=== PATIENT | female | born 1970 | race American Indian/Alaskan Native ===

== ENCOUNTER 2018-01-18 08:09 | Outpatient (CLI) | payer MEDICAID ==
--- NOTE | 2018-01-18 16:32 | Mammography Report ---
BILATERAL DIGITAL SCREENING MAMMOGRAM with CAD: 01/18/18 08:09:00 CLINICAL: Routine screening. COMPARISON:None available. FINDINGS: The breasts are heterogeneously dense, which may obscure small masses and the breasts are sufficiently dense to limit the sensitivity of mammography.A few bilateral scattered benign calcifications. No mass, architectural distortion or suspicious calcifications. IMPRESSION: No mammographic evidence of malignancy. BI-RADS CATEGORY: 2 - - Benign RECOMMENDATION: Routine mammographic screening in one year. COMMENT: Patient follow-up letters are generated by our [email or web address] application.
== END 2018-01-18 08:10 | disposition home or self-care (01) ==
LOC: SPVWC 08:09
PROVIDERS: ATTEND Obstetrics & Gynecology
DX: Z12.31 Encounter for screening mammogram for malignant neoplasm of breast (principal)
CPT/HCPCS: 77067

== ENCOUNTER 2018-04-05 14:56 | Outpatient (CLI) | payer MEDICAID ==
--- NOTE | 2018-04-12 13:00 | Magnetic Resonance Report ---
BILATERAL BREAST MRI WITHOUT AND WITH CONTRAST: 04/05/18 14:56:00 CLINICAL: Mastodynia. COMPARISON:Bilateral mammogram 01/18/18. TECHNIQUE: Axial 1.0-mm T1 without, axial high resolution 2.0-mm T2 and axial 1.0-mm dynamic Vibrant high-resolution postcontrast T1 fat saturation sequences on a 1.5 Marli magnet. The examination was performed with an 8 channel dedicated Sentinelle breast coil. Post processing with CAD and subtraction was performed on an [employer] workstation. 17.0 cc of Multihance was injected without incident for the contrast portion of the exam. Consent was obtained prior to the administration of the contrast. FINDINGS: Right: Mild background parenchymal enhancement. No mass or suspicious enhancement. A few scattered benign cysts. No suspicious lymph nodes. Left: Mild background parenchymal enhancement. No mass or suspicious enhancement. A few scattered benign cysts. The largest cyst is at 6 o'clock in the posterior one third of the breast and measures 1.4 cm. No suspicious lymph nodes. IMPRESSION: Negative study with bilateral benign cysts. BI-RADS 2 -- Benign
== END 2018-04-05 14:57 | disposition home or self-care (01) ==
LOC: SPVIMAG 14:56
PROVIDERS: ATTEND Surgery
DX: N64.4 Mastodynia (principal); Z80.3 Family history of malignant neoplasm of breast
CPT/HCPCS: A9577; C8908; 77059

== ENCOUNTER 2018-11-29 15:14 | Outpatient (CLI) | payer MEDICAID, OTHER | END 2018-11-29 15:15 | disposition home or self-care (01) | LOC: LABHHL 15:14 | PROVIDERS: ATTEND Specialist | DX: N60.02 Solitary cyst of left breast (principal) | CPT/HCPCS: 88112 ==

== ENCOUNTER 2020-04-03 07:31 | Day surgery (SDC) | payer MEDICAID, OTHER ==
[~2020-04-03 07:31] MED LIST: SODIUM CHLORIDE 0.9% 1000 ML 1,000 ML IV SCH
[2020-04-03] MEDS ORDERED: SODIUM CHLORIDE 0.9% 1000 ML 1,000 ML IV SCH (08:00)
--- NOTE | 2020-04-03 08:42 | Anesthesia Consultation ---
Anesthesia Consult and Med Hx Date of service: 04/03/20 - Airway Anesthetic Teeth Evaluation: Good ROM Head & Neck: Adequate Mental/Hyoid Distance: Adequate Mallampati Class: Class II Intubation Access Assessment: Probably Good - Pulmonary Exam CTA: Yes - Cardiac Exam Cardiac Exam: RRR - Pre-Operative Health Status ASA Pre-Surgery Classification: ASA2 Proposed Anesthetic Plan: TIVA
--- NOTE | 2020-04-03 08:43 | Anesthesia Day of Surgery ---
Anesthesia Day of Surgery - Day of Surgery Patient Examined: Yes Patient H&P Reviewed: Yes Patient is NPO: Yes
[2020-04-03] MEDS ORDERED: ONDANSETRON 4 MG/2 ML INJ ONE (09:29)
[2020-04-03] MEDS ORDERED: fentaNYL 100 MCG/2 ML INJ ONE (09:30)
[2020-04-03] MEDS ORDERED: propofoL 200 MG/20 ML VIAL IV ONE ×2 (09:30)
--- NOTE | 2020-04-03 10:10 | Procedure Note ---
Date of procedure: 04/03/20 Pre-op diagnosis: GERD/Dyspepsia/Abdominal Pain/Colon Polyp Screening Post-op diagnosis: other (Mild to Moderate Distal Erosive Esophagitis/Gastritis/ No Peptic Ulcer Disease noted/ No colon Polyps noted/ R/O Microscopic Colitis/ R/O Ileitis) Procedure: EGD with Biopsy/ Colonoscopy with Biopsy Anesthesia: SUDEEP Surgeon: RAS PARSON Estimated blood loss: minimal Pathology: list Specimen disposition: to lab Condition: stable Disposition: same day (Treat with PPI,prn Bentyl and ecourage OTC Probiotic. Avoid aspirin and NSAID and follow up in 1 to 2 weeks ([phone]).)
--- NOTE | 2020-04-03 10:22 | Operative Report ---
PROCEDURE: Esophagogastroduodenoscopy with biopsy. INDICATIONS: A 49-year-old -[place] female who has been having dyspeptic symptoms and GERD symptoms. EGD was done to assess for any significant upper GI pathology. The procedure was done after getting informed consent with MAC anesthesia. Instrument was passed through the hypopharynx into the esophagus, which showed mild to moderate distal erosive esophagitis. Photo documentation was obtained from the distal esophagus. The stomach showed antral gastritis. Biopsy was done from the gastric antrum, gastric body and angular incisura for H. pylori and atrophic gastritis. The Pylorus was patent. Duodenum in the first and second portion appeared normal. There was minimal bleeding associated with the procedure. No complications associated with the procedure. ASSESSMENT: Gastroesophageal reflux disease symptoms, dyspepsia, mild to moderate erosive esophagitis, gastritis. PLAN: To have the patient avoid aspirin and aspirin-related products for the next few days. Treat the patient with PPI. Colonoscopy will be done as part of colon polyp screening and also for assessment of abdominal pain. The patient will be asked to follow up in the office in 1-2 weeks' time. The patient will be treated with PPI. Procedure was done in the GI lab with assistance of the GI lab team, which included JEAN-PAUL Malin, mag Mcclain and with assistance of anesthesia. JOB# [id number] MONAE/BESSY
--- NOTE | 2020-04-03 10:24 | Operative Report ---
PROCEDURE: Colonoscopy with biopsy. INDICATIONS: A 49-year-old -Irish female who had an EGD done prior to the colonoscopy. EGD showed presence of a [id number] distal erosive esophagitis, gastritis, but no peptic ulcer disease was noted. DESCRIPTION OF PROCEDURE: Colonoscopy was done after getting informed consent with MAC anesthesia. Initial rectal exam was unremarkable. Instrument was passed through the rectum onto the cecum, which was identified by the ileocecal valve and the appendiceal orifice. The terminal ileum was intubated showed normal mucosa. Since the patient complained also of some associated abdominal pain, biopsy was done to rule out for possible ileitis. Cecum, ascending colon, transverse colon, descending colon, and sigmoid likewise showed normal mucosa. Random biopsies were done to rule out for possible microscopic colitis and the rectum showed some minor internal hemorrhoid on the retroverted view. ASSESSMENT: Abdominal pain, colon polyp screening, rule out microscopic colitis, rule out ileitis, minor internal hemorrhoid. PLAN: To treat the patient with PPI because of the EGD findings of esophagitis, gastritis. Also to place the patient on a p.r.n. dose of Bentyl for abdominal pain. I encouraged the patient to take probiotics. The patient to avoid aspirin and aspirin-related products for the next 4 days and follow up in the office in 1-2 weeks' time. The procedure was done in the GI lab with assistance of the GI lab team, which included mag Winter and with assistance of anesthesia. JOB# [id number] MONAE/BESSY RITTER
[2020-04-03 10:34] VITALS: BP 102/68
--- NOTE | 2020-04-03 10:40 | Post Anesthesia Evaluation ---
- Post Anesthesia Evaluation Patient Participated: Yes Airway Patent: Yes Stable Respiratory Function: Yes Nausea/Vomiting: No Temp > 96.8F: Yes Pain Manageable: Yes Adequeate Hydration: Yes Anesthesia Complications: No
== END 2020-04-03 10:39 | disposition home or self-care (01) ==
LOC: GIO 07:31
DX: R10.9 Unspecified abdominal pain (principal); K21.0 Gastro-esophageal reflux disease with esophagitis; K29.50 Unspecified chronic gastritis without bleeding; K63.89 Other specified diseases of intestine; K64.8 Other hemorrhoids; R10.13 Epigastric pain; K27.9 Peptic ulcer, site unspecified, unspecified as acute or chronic, without hemorrhage or perforation
CPT/HCPCS: 43239; 45380; 88305; 88342; J2405; J2704; J3010; J7030

== ENCOUNTER 2020-04-23 13:49 | Outpatient (CLI) | payer MEDICAID | END 2020-04-23 13:50 | disposition home or self-care (01) | LOC: LAB 13:49 | PROVIDERS: ATTEND Specialist | DX: D35.2 Benign neoplasm of pituitary gland (principal) | CPT/HCPCS: 36415; 84146 ==

== ENCOUNTER 2020-09-23 08:35 | Outpatient (CLI) | payer MEDICAID ==
--- NOTE | 2020-09-23 11:03 | Magnetic Resonance Report ---
Bilateral breast MR without and with contrast. History: Diffuse bilateral mastopathy, family history of breast cancer, screening breast MRI. Comparison: 03/04/2020, 04/05/2018. Technique: Multiplanar multisequence MR images of the breast were obtained before and after the intra venous administration of intravenous contrast. Post processing analysis and review was performed on a separate computer workstation. Findings: Breast composition is heterogenously dense. There is marked background parenchymal enhancement withi n both breasts which decreases the sensitivity of MRI.. RIGHT BREAST: There is a circumscribed oval 9 x 7 x 7 mm homogeneously enhancing mass in the right br east at the 9:00 position at anterior depth. This is best seen on axial postcontrast image 600/690. T his demonstrates slightly T2 hyperintense signal and this may represent a fibroadenoma. It is not def initely identified on prior MRI. Additionally, there is a suspected enlarged intramammary lymph node within the right upper outer breast at posterior depth. This is best seen on axial postcontrast image 618 at 690. Numerous scattered cysts are noted throughout the right breast. LEFT BREAST: No discrete enhancing mass, dominant focus, or other abnormal enhancement is identified within the left breast, given the limitations of marked background parenchymal enhancement and scatte red enhancing foci. There are numerous cysts scattered throughout the left breast. No abnormal axillary or internal mammary lymph nodes are identified. Impression: Circumscribed oval 9 mm mass, possibly fibroadenoma, is noted within the right breast at the 9:00 pos ition (2 to 3 cm from the nipple). A targeted ultrasound is recommended for further evaluation with p ossible subsequent ultrasound guided biopsy. If no sonographic correlate is identified, an MRI guided biopsy recommended. Suspected enlarged intramammary lymph node within the right breast at 10:00 to 11:00 position (8 cm f rom the nipple). A targeted ultrasound with possible subsequent ultrasound-guided biopsy is recommend ed. BIRADS 0: Incomplete--Needs Additional Imaging Evaluation. A normal MRI does not exclude the presence of some forms of breast malignancy as literature reports s uggest that some forms of ductal carcinoma in situ or lobular carcinoma, particularly, may not be det ected on MRI. The sensitivity and specificity of MRI for cancers under 5 mm may be reduced. MRI does not replace the recommendation for annual conventional mammographic evaluation and should be used as an adjunct to mammography and physical examination as necessary. Signer Name: Attila Alexander MD Signed: 09/23/2020 10:58 AM Workstation Name: [id number]
== END 2020-09-23 08:36 | disposition home or self-care (01) ==
LOC: SPVIMAG 08:35
PROVIDERS: ATTEND Surgery
DX: N63.11 Unspecified lump in the right breast, upper outer quadrant (principal); N60.11 Diffuse cystic mastopathy of right breast; N60.12 Diffuse cystic mastopathy of left breast; Z80.3 Family history of malignant neoplasm of breast
CPT/HCPCS: A9577; C8908; 77049

== ENCOUNTER 2020-10-06 12:40 | Outpatient (CLI) | payer MEDICAID ==
--- NOTE | 2020-10-06 14:45 | Ultrasound Report ---
TARGETED ULTRASOUND BREAST RIGHT LIMITED, 10/06/2020 CLINICAL INFORMATION / INDICATION: Family history of breast cancer. Abnormal breast MR TECHNIQUE: Targeted ultrasound evaluation was performed of the area of interest. COMPARISON: MR breast 09/23/2020 and 04/05/2018, bilateral mammogram 11/03/2020 FINDINGS: Note that the initial 29 images were performed by a less experienced technologists with images 30 thr ough 56 follow-up second look by a more experienced technologist. Scattered benign small simple cysts are seen in the lateral aspect of the right breast. A few small c ysts appear mildly complicated. In the 10:00 position, 5 cm from the nipple, an ovoid probable compli cated cyst is seen measuring 6 mm with mild diffuse internal echoes. Benign-appearing lymph nodes are seen in the right axilla. No obvious correlate is seen to the MR findings. IMPRESSION: 1. No obvious correlate is seen to the findings on MR. On MR the patient shows prominent bilateral pr oliferative changes which are more accentuated on today's study compared with 2018. The areas in ques tion anteriorly and posteriorly in the lateral central right breast are more prominent focally than o n prior study though there was significant enhancement in these areas previously. Kinetics are benign and ascending at both sites. No clear T1 or T2-weighted correlates are seen. I believe these areas a re of low concern despite mild change based on the similarity in appearance of some other areas of cruz th breasts and the overall prominent bilateral proliferative pattern. If 6 months MR follow-up can be obtained this would be suggested. 2. Sonographic findings today are benign and probably benign as above. Recommend 6 month ultrasound f ollow-up of the small benign-appearing nodule versus complicated cyst at 10:00. Follow up recommendation: See above BI-RADS Category 3: Probably Benign. Followup in 6 months. A normal or "negative" report should not preclude biopsy or follow-up of a clinically suspicious find ing. Signer Name: Jayson Marroquin MD Signed: 10/06/2020 2:41 PM Workstation Name: [id number]
== END 2020-10-06 12:41 | disposition home or self-care (01) ==
LOC: SPVWC 12:40
PROVIDERS: ATTEND Surgery
DX: N60.01 Solitary cyst of right breast (principal); R92.8 Other abnormal and inconclusive findings on diagnostic imaging of breast

== ENCOUNTER 2020-11-27 12:21 | Emergency (ER) | payer MEDICAID ==
--- NOTE | 2020-11-27 12:59 | Event Note ---
ED Screening Note Date of service: 11/27/20 Time: 12:56 ED Screening Note: 49-year-old -[place] female with a past medical history of GERD, IBS. Patient states she saw her certified coatings inspector on Monday he prescribed her medication has not helped. Spoke to certified coatings inspector she states that he advised her to come to the emergency room and have CT scan and blood work done. Patient denies any nausea no vomiting no diarrhea. No fevers no chills. This initial assessment/diagnostic orders/clinical plan/treatment(s) is/are subject to change based on patients health status, clinical progression and re- assessment by fellow clinical providers in the ED. Further treatment and workup at subsequent clinical providers discretion. Patient/guardian urged not to elope from the ED as their condition may be serious if not clinically assessed and managed. Initial orders include:
[2020-11-27 13:57] LABS: Bacteria,Urine 1+ /HPF (Negative); Bilirubin,Urine NEG (Negative); Blood,Urine NEG (Negative); Color,Urine Yellow (Yellow); Mucus,Urine FEW /HPF; Protein,Urine <15 mg/dL mg/dL (Negative); Urobilinogen,Urine < 2.0 mg/dL (<2.0); WBC,Urine < 1.0 /HPF (0.0-6.0)
[2020-11-27 14:14] LABS: Basophils % (Auto) 0.8 % (0.0-1.8); Eosinophils % (Auto) 0.9 % (0.0-4.3); Hematocrit 35.8 % (30.3-42.9); Hemoglobin 11.7 gm/dl (10.1-14.3); Lymphocytes # (Auto) 1.2 K/mm3 (1.2-5.4); Lymphocytes % (Auto) 32.5 % (13.4-35.0); Mean Corpuscular HGB Conc 33 % (30-34); Mean Corpuscular Volume 88 fl (79-97); Monocytes # (Auto) 0.3 K/mm3 (0.0-0.8); Monocytes % (Auto) 6.7 % (0.0-7.3); Platelet Count 188 K/mm3 (140-440); Red Blood Count 4.08 M/mm3 (3.65-5.03)
[2020-11-27 14:35] LABS: Alanine Aminotransferase 9 units/L (7-56); Albumin 4.1 g/dL (3.9-5); BUN/Creatinine Ratio 9; Blood Urea Nitrogen 7 mg/dL (7-17); Calcium 8.9 mg/dL (8.4-10.2); Hemolysis Index 13
--- NOTE | 2020-11-27 16:12 | Cat Scan Report ---
CT ABDOMEN AND PELVIS WITH CONTRAST HISTORY: Left-sided abdominal pain COMPARISON: None TECHNIQUE: Routine abdominal and pelvic CT exam performed following intravenous contrast administrat ion.. All CT scans at this location are performed using CT dose reduction for ALARA by means of autom ated exposure control. FINDINGS: CT ABDOMEN: Lung Bases: No significant abnormality. Liver: No significant abnormality. Biliary: No significant abnormality. Spleen: No significant abnormality. Unenlarged. Pancreas: No significant abnormality. Adrenals: No significant abnormality. Kidneys: No significant abnormality. Lymphatics: No lymphadenopathy. Vasculature: No significant abnormality. Bowel/Peritoneum: No significant abnormality. No free air. No free fluid. Normal appendix. CT PELVIC: : No acute findings in the bladder or uterus. The uterus appears mildly enlarged and could possibly contain some fibroids. Lymphatics: No lymphadenopathy. Osseous Structures: No aggressive appearing osseous lesions. Additional Findings: None IMPRESSION: 1. No acute findings or findings to explain left-sided abdominal pain. Signer Name: Ti Giron MD Signed: 11/27/2020 4:08 PM Workstation Name: [id number]
[2020-11-27] MEDS ORDERED: LORazepam 2 MG/ML VIAL ONE (16:56)
[2020-11-27] MEDS ORDERED: HALOPERIDOL LACTATE 5 MG/1 ML INJ ONE (16:56)
--- NOTE | 2020-11-27 17:25 | Emergency Department Report ---
ED Abdominal Pain HPI - General Chief Complaint: Abdominal Pain Stated Complaint: LEFT SIDED PAIN PUI?: No Source: patient Mode of arrival: Ambulatory Limitations: No Limitations - History of Present Illness Initial Comments: 49-year-old -[place] female with a past medical history of GERD, IBS. Patient states she saw her making machine catcher on Monday he prescribed her medication has not helped. Spoke to making machine catcher she states that he a dvised her to come to the emergency room and have CT scan and blood work done. Patient denies any nausea no vomiting no diarrhea. No fevers no chills. Onset/Timin -: days(s) Location: [facility] Severity scale (0 -10): 7 Quality: stabbing Consistency: intermittent Worsens With: nothing Associated Symptoms: denies other symptoms. denies: nausea, vomiting - Related Data Home Medications Medication Instructions Recorded Confirmed Last Taken [facility] Thyroid 90 mg PO DAILY 04/03/20 04/03/20 04/02/20 09:00 Previous Rx's Medication Instructions Recorded Last Taken Type Dicyclomine [Bentyl] 10 mg PO QID 30 Days #40 capsule 04/03/20 Unknown Rx Pantoprazole [Protonix] 40 mg PO QDAY 30 Days #30 tablet 04/03/20 Unknown Rx Allergies Allergy/AdvReac Type Severity Reaction Status Date / Time fluconazole [From Diflucan] AdvReac Hives Verified 11/27/20 12:35 ED Review of Systems ROS: Stated complaint: LEFT SIDED PAIN Other details as noted in HPI Comment: All other systems reviewed and negative ED Past Medical Hx - Past Medical History Hx GERD: Yes Hx Headaches / Migraines: Yes Additional medical history: THYROID - Surgical History Additional Surgical History: neck sx, 05/18/2020 - Social History Smoking Status: Never Smoker Substance Use Type: None - Medications Home Medications: Home Medications Medication Instructions Recorded Confirmed Last Taken Type [facility] Thyroid 90 mg PO DAILY 04/03/20 04/03/20 04/02/20 09:00 History Dicyclomine [Bentyl] 10 mg PO QID 30 Days #40 capsule 04/03/20 Unknown Rx Pantoprazole [Protonix] 40 mg PO QDAY 30 Days #30 tablet 04/03/20 Unknown Rx ED Physical Exam - General Limitations: No Limitations General appearance: alert, in no apparent distress - Head Head exam: Present: atraumatic, normocephalic - Eye Eye exam: Present: normal appearance - ENT ENT exam: Present: mucous membranes moist - Neck Neck exam: Present: normal inspection - Respiratory Respiratory exam: Present: normal lung sounds bilaterally. Absent: respiratory distress - Cardiovascular Cardiovascular Exam: Present: regular rate, normal rhythm. Absent: systolic murmur, diastolic murmur, rubs, gallop - GI/Abdominal GI/Abdominal exam: Present: soft. Absent: distended, tenderness - Back Exam Back exam: Present: normal inspection - Neurological Exam Neurological exam: Present: alert, oriented X3 - Psychiatric Psychiatric exam: Present: normal affect, normal mood - Skin Skin exam: Present: warm, dry, intact, normal color. Absent: rash ED Course Vital Signs 11/27/20 12:35 Temperature 98.5 F Pulse Rate 94 H Respiratory 18 Rate Blood Pressure 129/79 O2 Sat by Pulse 100 Oximetry ED Medical Decision Making - Lab Data Result diagrams: 11/27/20 13:37 11/27/20 13:37 - Radiology Data Radiology results: report reviewed Patient: LORNA MERCADO MR#: [id number] 8 : 1970 Acct:[id number] Age/Sex: 49 / F ADM Date: 11/27/20 Loc: ED Attending Dr: Ordering Physician: MARCELLO CASILLAS Date of Service: 11/27/20 Procedure(s): CT abdomen pelvis w con Accession Number(s): [id number] cc: MARCELLO CASILLAS CT ABDOMEN AND PELVIS WITH CONTRAST HISTORY: Left-sided abdominal pain COMPARISON: None TECHNIQUE: Routine abdominal and pelvic CT exam performed following intravenous contrast administration.. All CT scans at this location are performed using CT dose reduction for ALARA by means of automated exposure control. FINDINGS: CT ABDOMEN: Lung Bases: No significant abnormality. Liver: No significant abnormality. Biliary: No significant abnormality. Spleen: No significant abnormality. Unenlarged. Pancreas: No significant abnormality. Adrenals: No significant abnormality. Kidneys: No significant abnormality. Lymphatics: No lymphadenopathy. Vasculature: No significant abnormality. Bowel/Peritoneum: No significant abnormality. No free air. No free fluid. Normal appendix. CT PELVIC: : No acute findings in the bladder or uterus. The uterus appears mildly enlarged and could possibly contain some fibroids. Lymphatics: No lymphadenopathy. Osseous Structures: No aggressive appearing osseous lesions. Additional Findings: None IMPRESSION: 1. No acute findings or findings to explain left-sided abdominal pain. Signer Name: Ti Giron MD Signed: 11/27/2020 4:08 PM Workstation Name: [id number] Transcribed By: LALITA Dictated By: Ti Giron MD Electronically Authenticated By: Ti Giron MD Signed Date/Time: 11/27/201607 DD/ 05 TD/TT: - Medical Decision Making 49-year-old -[place] female with a past medical history of GERD, IBS. Patient states she saw her making machine catcher on Monday he prescribed her medication has not helped. Spoke to making machine catcher she states that he advised her to come to the emergency room and have CT scan and blood work done. Patient denies any nausea no vomiting no diarrhea. No fevers no chills. All labs are within normal limits. CT scan is within normal limits. Recommended she follow-up with your making machine catcher. You can take Tylenol or ibuprofen or Tylenol for pain. Critical care attestation.: If time is entered above; I have spent that time in minutes in the direct care of this critically ill patient, excluding procedure time. ED Disposition Clinical Impression: Left upper quadrant abdominal pain Disposition: DC-01 TO HOME OR SELFCARE Is pt being admited?: No Does the pt Need Aspirin: No Condition: Stable Instructions: Abdominal Pain (ED), Abdominal Pain, Adult, [id number] Additional Instructions: Labs are are stable. CT scan is within normal limits. Recommend for you to follow-up with your making machine catcher. Referrals: PRIMARY CAREMD [Primary Care Provider] - 3-5 Days Forms: Work/School Release Form(ED)
[2020-11-27 17:26] VITALS: BP 143/81
== END 2020-11-27 17:26 | disposition home or self-care (01) ==
LOC: ED 12:21
DX: R10.12 Left upper quadrant pain (principal); K21.9 Gastro-esophageal reflux disease without esophagitis; G43.909 Migraine, unspecified, not intractable, without status migrainosus; Z79.899 Other long term (current) drug therapy; Z88.8 Allergy status to other drugs, medicaments and biological substances
CPT/HCPCS: 36415; 74177; 80053; 81001; 83690; 85025; 99284; Q9967; J1630; J2060

== ENCOUNTER 2020-12-04 10:04 | Day surgery (SDC) | payer MEDICAID ==
[2020-12-04] MEDS ORDERED: SODIUM CHLORIDE 0.9% 1000 ML 1,000 ML ONE (10:57)
[2020-12-04] MEDS ORDERED: SODIUM CHLORIDE 0.9% 1000 ML 1,000 ML IV SCH (11:15)
--- NOTE | 2020-12-04 11:29 | Anesthesia Consultation ---
Anesthesia Consult and Med Hx Date of service: 12/04/20 - Airway Anesthetic Teeth Evaluation: Good ROM Head & Neck: Adequate Mental/Hyoid Distance: Adequate Mallampati Class: Class II Intubation Access Assessment: Probably Good - Pulmonary Exam CTA: Yes - Cardiac Exam Cardiac Exam: RRR - Pre-Operative Health Status ASA Pre-Surgery Classification: ASA2 Proposed Anesthetic Plan: MAC - Pulmonary Hx Respiratory Symptoms: No - Cardiovascular System Hx Hypertension: No - Central Nervous System CVA: No - Endocrine Hx Renal Disease: No Hx Liver Disease: No Hx Insulin Dependent Diabetes: No Hx Non-Insulin Dependent Diabetes: No Hx Hypothyroidism: Yes - Other Systems Hx Obesity: Yes (BMI 36)
--- NOTE | 2020-12-04 11:29 | Anesthesia Day of Surgery ---
Anesthesia Day of Surgery - Day of Surgery Patient Examined: Yes Patient H&P Reviewed: Yes Patient is NPO: Yes
[2020-12-04] MEDS ORDERED: propofoL 200 MG/20 ML VIAL IV ONE (11:32)
[2020-12-04] MEDS ORDERED: MIDAZOLAM 2 MG/2 ML INJ ONE ×3 (11:32→11:39)
[2020-12-04] MEDS ORDERED: fentaNYL 100 MCG/2 ML INJ ONE (11:32)
[2020-12-04] MEDS ORDERED: LIDOCAINE MPF (2%) 20 MG/1 ML VIAL 5 ML ONE (11:32)
[2020-12-04] MEDS ORDERED: SODIUM CHLORIDE 0.9% 1000 ML IV SOLN IV ONE (11:36)
--- NOTE | 2020-12-04 12:07 | Procedure Note ---
Date of procedure: 12/04/20 Pre-op diagnosis: Abdominal Pain Post-op diagnosis: other (R/o Microscopic Colitis/ R/O Ileitis/ minor,Internal Hemorrhoid) Procedure: Colonoscopy with Biopsy Anesthesia: MAC Surgeon: RAS PARSON Estimated blood loss: minimal Pathology: list Specimen disposition: to lab Condition: stable Disposition: same day (Treat with prn Bentyl and OTC Probiotic of Choice. Avoid aspirin and NSAID for 5 days; otherwise resume home medication and follow up in 1 to 2 weeks ([phone]).)
--- NOTE | 2020-12-04 12:14 | Operative Report ---
PROCEDURE: Colonoscopy with biopsy. INDICATIONS: This is a 49-year-old female in otherwise good health, who has been complaining of severe abdominal pain, colonoscopy was done to assess for the abdominal pain and to see if there was any associated colitis. DESCRIPTION OF PROCEDURE: The procedure was done after getting informed consent with MAC anesthesia. Initial rectal exam was unremarkable. Instrument was passed through the rectum onto the cecum, which was identified with ileocecal valve and the appendiceal orifice. Visualization was fair to good, which was fair in the cecum, which was washed with copious amounts of water. The terminal ileum was intubated, showed normal mucosa. Biopsy was done to rule out for possible ileitis. Cecum, ascending colon, transverse colon, descending colon, and sigmoid likewise showed normal mucosa. There was no evidence of any polyps, colitis or endoscopic evidence of colitis or diverticular disease. Random biopsies were done to rule out for possible microscopic colitis and the rectum showed some minor internal hemorrhoid on the retroverted view. There was minimal bleeding associated with the procedure. No complications associated with the procedure. ASSESSMENT: Abdominal pain, rule out microscopic colitis, rule out ileitis, minor internal hemorrhoid. No colon polyps or diverticular disease noted. PLAN: To treat the patient with probiotics and also with Bentyl p.r.n. The patient will be asked to avoid aspirin and aspirin-related products for the next few days and follow up in the office in 1-2 weeks' time. The procedure was done in the GI lab with assistance of the GI lab team, which included the GI nurse including the computer service technician and with assistance of anesthesia. JOB# [id number] MONAE/BESSY
[2020-12-04 13:07] VITALS: BP 112/74
== END 2020-12-04 13:15 | disposition home or self-care (01) ==
LOC: GIO 10:04
DX: R10.9 Unspecified abdominal pain (principal); K64.8 Other hemorrhoids; K63.89 Other specified diseases of intestine; E66.9 Obesity, unspecified; K21.9 Gastro-esophageal reflux disease without esophagitis; E03.9 Hypothyroidism, unspecified; Z98.890 Other specified postprocedural states; Z79.899 Other long term (current) drug therapy; Z88.8 Allergy status to other drugs, medicaments and biological substances; Z68.36 Body mass index [BMI] 36.0-36.9, adult
CPT/HCPCS: 45380; 88305; J2250; J2704; J3010; J7030

== ENCOUNTER 2021-03-08 09:53 | Outpatient (CLI) | payer MEDICAID ==
--- NOTE | 2021-03-08 15:58 | Mammography Report ---
DIGITAL SCREENING MAMMOGRAM WITH CAD, 03/08/2021 CLINICAL INFORMATION / INDICATION: Routine screening TECHNIQUE: Digital bilateral 2D mammography was obtained in the craniocaudal and mediolateral obliqu e projections. This examination was interpreted with the benefit of Computer-Aided Detection analysis . COMPARISON: 03/04/2020 FINDINGS: Breast Density: The breasts are extremely dense, which lowers the sensitivity of mammography. No dominant mass, suspicious calcifications, or architectural distortion in either breast. Right surgical changes are again noted. IMPRESSION: No mammographic evidence of malignancy. Follow up recommendation: Routine yearly BI-RADS Category 2: Benign. A "normal" or negative report should not discourage follow up or biopsy of a clinically significant f inding. A written summary of these findings will be mailed to the patient. The patient will be entered into a mammography reporting system which will generate a reminder letter for the patient's next appointmen t at the appropriate interval. The [employer] recommends yearly mammograms starting at age 40 and continuing as l erik as a woman is in good health. Breast MRI is recommended for women with an approximate 20-25% or greater lifetime risk of breast cancer, including women with a strong family history of breast or ova velia cancer or who have been treated for Hodgkin's disease. Signer Name: Jayson Marroquin MD Signed: 03/08/2021 3:53 PM Workstation Name: [id number]
== END 2021-03-08 09:54 | disposition home or self-care (01) ==
LOC: SPVWC 09:53
PROVIDERS: ATTEND Surgery
DX: Z12.31 Encounter for screening mammogram for malignant neoplasm of breast (principal)
CPT/HCPCS: 77067

== ENCOUNTER 2021-03-10 08:27 | Outpatient (CLI) | payer MEDICAID ==
--- NOTE | 2021-03-10 13:23 | Ultrasound Report ---
ULTRASOUND BREAST BILATERAL COMPLETE, 03/10/2021 CLINICAL INFORMATION / INDICATION: Short-term follow-up for right breast mass. Additionally patient h as family history breast carcinoma as well as dense breast tissue.. TECHNIQUE: Complete sonographic evaluation of all 4 quadrants and retroareolar region was performed. COMPARISON: Prior right breast ultrasound 10/06/2020, recent bilateral mammogram 03/08/2021 FINDINGS: Right breast: Scattered small cysts are seen throughout the right breast. No solid mass or focal area of shadowing is identified. The hypoechoic mass seen on the prior right breast ultrasound is not rep roduced and more than likely represented a complicated cyst that has since resolved. Left breast: Scattered small cysts are seen throughout the left breast. There is a hypoechoic mass wi th central vascularity in the left breast at 5:00, 5 cm from nipple measuring 13 x 5 mm. The appearan ce is most suggestive of either fibroadenoma or lymph node. IMPRESSION: 1. Hypoechoic benign-appearing oval mass left breast at 5:00, probably representing benign fibroadeno ma. Recommend 6 month follow-up ultrasound exam. 2. Scattered small cysts and fibrocystic change noted within the right breast. Previously noted hypoe choic small mass in the right breast on prior ultrasound at 10:00 is not reproduced. Follow up recommendation: Short term interval follow up BI-RADS Category 3: Probably Benign. Followup in 6 months. A normal or "negative" report should not preclude biopsy or follow-up of a clinically suspicious find ing. blandon bilateral Sicious finding. Signer Name: Chiara Lucas MD Signed: 03/10/2021 12:15 PM Workstation Name: [id number]
== END 2021-03-10 08:28 | disposition home or self-care (01) ==
LOC: SPVWC 08:27
PROVIDERS: ATTEND Surgery
DX: N63.23 Unspecified lump in the left breast, lower outer quadrant (principal); N60.01 Solitary cyst of right breast

== ENCOUNTER 2021-03-16 10:19 | Outpatient (CLI) | payer MEDICAID ==
--- NOTE | 2021-03-16 12:10 | Magnetic Resonance Report ---
Bilateral breast MRI with and without contrast. History: FAMILY HX OF BREAST CA Z80.3/ SOLITARY CYST RIGHT N60.01/ DIFFUSE Procedure: Axial T1 and T2-weighted fat-sat images were obtained precontrast. 19 cc Clariscan was in jected intravenously and serial axial T1-weighted images with fat saturation were obtained postcontra st. 3-D MIP projections, Kinetic analysis and subtraction imaging was utilized to evaluate. A retsCloud ed 8 channel breast coil was utilized for image acquisition. Comparison: Bilateral mammogram 03/08/2021, bilateral breast ultrasound 03/10/2021, MR breast 0 Findings: Background level of enhancement is moderate. No suspicious axillary or clavicular nodes are identified. No abnormal bone marrow signal is seen. No significant chest wall enhancement is noted. Right breast: Moderate proliferative changes are seen with pattern not significant changed from prior study. Fibrocystic changes are noted. Left breast: Fibrocystic changes are noted. Moderate proliferative changes are again seen with patter n not significantly changed from prior study. The probable fibroadenoma noted in the 5:00 position on the left on recent ultrasound is not discretely identified though is in an area of continuing mild e nhancement in the lateral left breast. Impression: No significant changes or suspicious lesions are seen. Recommend follow-up left breast ul trasound as per recent left breast ultrasound report. BIRADS: 2: Benign Signer Name: Jayson Marroquin MD Signed: 03/16/2021 12:06 PM Workstation Name: [id number]
== END 2021-03-16 10:20 | disposition home or self-care (01) ==
LOC: SPVIMAG 10:19
PROVIDERS: ATTEND Surgery
DX: N60.11 Diffuse cystic mastopathy of right breast (principal); N60.12 Diffuse cystic mastopathy of left breast; N64.9 Disorder of breast, unspecified; N60.01 Solitary cyst of right breast; Z80.3 Family history of malignant neoplasm of breast
CPT/HCPCS: A9575; C8908; 77049

== ENCOUNTER 2021-06-30 08:59 | Outpatient (CLI) | payer MEDICAID ==
--- NOTE | 2021-06-30 11:28 | Mammography Report ---
LEFT DIGITAL DIAGNOSTIC MAMMOGRAM WITH CAD CONVENTIONAL, 06/30/2021 LEFT COMPLETE BREAST ULTRASOUND CLINICAL INFORMATION / INDICATION: Patient presents for evaluation of diffuse left breast pain. TECHNIQUE: Digital left mammographic imaging was performed. Complete ultrasound of all four (4) quadr ants was performed. This examination was interpreted with the benefit of Computer-Aided Detection (CA D) analysis. COMPARISON: Prior mammogram 03/08/2021, bilateral breast ultrasound 03/10/2021, and breast MRI 03/16/2021 FINDINGS: Breast Density: The breasts are extremely dense, which lowers the sensitivity of mammography. MAMMOGRAPHIC FINDINGS: No dominant mass, suspicious calcifications, or architectural distortion in th e left breast. There has been no significant change compared with the prior examinations. There is no mammographic abnormality to account for left breast pain, therefore complete left breast ultrasound was subsequently performed. ULTRASOUND FINDINGS: Complete sonographic evaluation of all 4 quadrants and retroareolar region was p erformed. An oval circumscribed hypoechoic mass in the left breast 5:00 position located 4 cm from the nipple is not significantly changed compared with prior examination, currently measuring up to 1. 4 x 0.4 x 1.0 cm, previously 1.3 x 0.4 x 0.8 cm. The mass is parallel. A focus of internal vascularit y is demonstrated. Incidental note is made of a probable island of heterogeneous, dense tissue in the 3:00 position located 7 cm from the nipple. Otherwise, no suspicious sonographic abnormality identif ied in the left breast. A morphologically normal lymph node is seen in the left axilla. IMPRESSION: 1. An oval circumscribed hypoechoic mass in the 5:00 left breast is not significantly changed compare d with prior examination and remains probably benign. Additionally, there is a probable island of foc al dense, heterogeneous tissue in the 3:00 left breast. Given that recent breast MRI was normal, this area is also likely benign. Recommend left breast ultrasound in 6 months to ensure ongoing stability . Follow up recommendation: Short term follow up in 6 months. BI-RADS Category 3: Probably Benign. Followup in 6 months. A "normal" or negative report should not discourage follow up or biopsy of a clinically significant f inding. A written summary of these findings will be mailed to the patient. The patient will be entered into a mammography reporting system which will generate a reminder letter for the patient's next appointmen t at the appropriate interval. According to the [employer], yearly mammograms are recommended starting at age 40 and continuing as long as a woman is in good health. Breast MRI is recommended for women with an phu roximately 20-25% or greater lifetime risk of breast cancer, including women with a strong family his tory of breast or ovarian cancer and women who have been treated for Hodgkin's disease. Signer Name: Joan Grigsby MD Signed: 06/30/2021 11:23 AM Workstation Name: [email or web address]
== END 2021-06-30 09:00 | disposition home or self-care (01) ==
LOC: SPVWC 08:59
PROVIDERS: ATTEND Surgery
DX: N63.23 Unspecified lump in the left breast, lower outer quadrant (principal); N64.4 Mastodynia